=== PATIENT | female | born 1970 | race Caucasian/White ===

== ENCOUNTER 2025-01-26 09:25 | Inpatient (IN) | payer OTHER ==
[~2025-01-26] VITALS: Ht 162.6 cm; Wt 63.2 kg
[~2025-01-26 09:25] MED LIST: HYDACE5 PO; IBUP400 PO; IBUP600 PO; OXYACE5T PO; PRED20 PO; Percocet 5-3251 EACH PO
[2025-01-26 10:56] LABS: Bicarbonate Venous 26.2 mmol/L (24.0-30.0); PCO2 Venous 47.1 mmHg (38-42)
[2025-01-26 11:02] LABS: BASOPHILS ABSOLUTE AUTO 0.08 K/mm3 (0.00-0.23); BASOPHILS PERCENT AUTO 1 % (0-2); EOSINOPHILS ABSOLUTE AUTO 0.02 K/mm3 (0.00-0.68); EOSINOPHILS PERCENT AUTO 0 % (0-6); Hematocrit 41.8 % (33.0-51.0); Hemoglobin 14.7 g/dL (11.5-16.0); IMMATURE GRAN ABSOLUTE AUTO 0.53 K/mm3 (0.00-0.10); IMMATURE GRAN PERCENT AUTO 4 % (0-1); LYMPHOCYTES ABSOLUTE AUTO 1.22 K/mm3 (0.84-5.20); LYMPHOCYTES PERCENT AUTO 8 % (21-46); MONOCYTES ABSOLUTE AUTO 0.99 K/mm3 (0.16-1.47); MONOCYTES PERCENT AUTO 7 % (4-13); Mean Corpuscular HGB 33.1 pg (26.0-34.0); Mean Corpuscular HGB Conc 35.2 g/dL (31.5-36.5); Mean Corpuscular Volume 94 fL (80-100); Mean Platelet Volume 10.1 fL (9.1-12.4); NEUTROPHILS ABSOLUTE AUTO 12.21 K/mm3 (1.96-9.15); NEUTROPHILS PERCENT AUTO 81 % (41-73); Platelet Count 552 K/mm3 (150-400); RDW Coefficient Variation 13.1 % (11.7-14.2); RDW Standard Deviation 44.5 fL (35.1-46.3); Red Blood Cell Count 4.44 M/mm3 (3.80-5.20); White Blood Cell Count 15.05 K/mm3 (4.00-11.30)
[2025-01-26] MEDS ORDERED: ALBU90OI INH (12:00)
[2025-01-26] MEDS ORDERED: ALBUTEROL AER HFA (12:00)
[2025-01-26] MEDS ORDERED: Prednisone10 MG (12:01)
[2025-01-26] MEDS ORDERED: AMOX-CLAV 875-1 EAC5 (12:01)
[2025-01-26] MEDS ORDERED: PREDNISONE (12:01)
[2025-01-26] MEDS ORDERED: CefTRIAXone Sodium 1,000 MG in NS 100 ML IV ONE (13:35)
[2025-01-26] MEDS ORDERED: Azithromycin 500 MG in NS 250 ML IV ONE (13:40)
[2025-01-26 14:55] LABS: Albumin, Blood 3.7 g/dL (3.4-5.0); Albumin/Globulin Ratio 0.8 (0.8-1.8); Bilirubin, Total 0.3 mg/dL (0.1-1.0); Bun/Creatinine Ratio 20.7 (12.0-20.0); Calcium, Blood 9.3 mg/dL (8.5-10.1); Creatinine, Blood 0.63 mg/dL (0.40-1.00); Globulin, Blood 4.4 g/dL (2.2-4.0); Potassium, Blood 3.7 mmol/L (3.5-5.5); Total Protein, Blood 8.1 g/dL (6.4-8.2)
[2025-01-26 15:44] VITALS: BP 149/95
[2025-01-26] MEDS ORDERED: Albuterol 2.5 MG/3 ML VIAL INH PRN (17:30)
[2025-01-26] MEDS ORDERED: Ipratropium/Albuterol SulF 2.5-0.5MG/3 ML Amp INH SCH (17:30)
[2025-01-26] MEDS ORDERED: MethylPREDNISolone Sod Succ 125 MG Vial IV SCH (18:00)
--- NOTE | 2025-01-26 18:12 | NUR ---
END OF SHIFT PT ARRIVED TO ROOM 309 AROUND 1545, PT ABLE TO TRANSFER SELF TO BED. SHE DOESNT USE AND DME AT BASELINE PT ON 3 LITERS OF O2, NONE AT BASELINE. LUNG SOUNDS CLEAR, 02 SATS ABOVE 90% BUT FEELS VERY SHORT OF BREATH. PT GOT UP TO USE THE BATHROOM, O2 DECREASED TO 88% AND CONTINUED TO HAVE A DIFFICULTY TIME RECOVERING. O2 INCREASED TO 5 LITERS. NOTIFIED AND RESP TREATMENTS ORDERED. PT DOESNT HAVE ANY SKIN ISSUES. PIV PATENT. PT HAS CALL LIGHT WITHIN REACH AND USES APPROPRIATLY
[2025-01-26 20:00] VITALS: BP 142/90
[2025-01-26] MEDS ORDERED: Lactobacil 2-S.Thermo-Bifido 1 1 Cap PO SCH (21:00)
[2025-01-27 03:53] VITALS: BP 124/85
--- NOTE | 2025-01-27 05:05 | NUR ---
SHIFT SUMMARY PT ALERT ORIENTED X 4 GETS UP AND AMBULATES TO THE BATHROOM WITH SBA AND WALKER. SHE GETS VERY SOB AND REQUIRES TO BE SITTING STRAIGHT UP IN THE BED OR IN THE CHAIR. REMAINS ON ROCEPHIN QDAY AND ZITHROMAX QDAY FOR BRONCHOPNEUMONIA. SHE REMAINS ON 5L VIA NC AND IS SATTING AT 93%. REMAINS ON A CONTINUOUS PULSE OX. SHE GETS VERY SOB ON EXERTION. LUNG SOUNDS ARE CLEAR BUT SHE HAS A VERY HARD TIME CATCHING HER BREATH WHEN SHES MOVING AROUND.RESTING SITTING UP IN THE BED AT THIS TIME WITH CALL LIGHT IN REACH
[2025-01-27 05:10] LABS: BASOPHILS ABSOLUTE AUTO 0.04 K/mm3 (0.00-0.23); BASOPHILS PERCENT AUTO 0 % (0-2); EOSINOPHILS PERCENT AUTO 0 % (0-6); Hematocrit 36.6 % (33.0-51.0); Hemoglobin 12.8 g/dL (11.5-16.0); IMMATURE GRAN PERCENT AUTO 3 % (0-1); LYMPHOCYTES ABSOLUTE AUTO 0.74 K/mm3 (0.84-5.20); LYMPHOCYTES PERCENT AUTO 6 % (21-46); MONOCYTES ABSOLUTE AUTO 0.16 K/mm3 (0.16-1.47); MONOCYTES PERCENT AUTO 1 % (4-13); Mean Corpuscular HGB 33.2 pg (26.0-34.0); Mean Corpuscular Volume 95 fL (80-100); Mean Platelet Volume 10.1 fL (9.1-12.4); NEUTROPHILS ABSOLUTE AUTO 10.62 K/mm3 (1.96-9.15); NEUTROPHILS PERCENT AUTO 90 % (41-73); Platelet Count 459 K/mm3 (150-400); RDW Coefficient Variation 13.1 % (11.7-14.2); RDW Standard Deviation 44.3 fL (35.1-46.3); Red Blood Cell Count 3.86 M/mm3 (3.80-5.20); White Blood Cell Count 11.86 K/mm3 (4.00-11.30)
[2025-01-27 05:30] LABS: Albumin, Blood 2.8 g/dL (3.4-5.0); Albumin/Globulin Ratio 0.6 (0.8-1.8); Bilirubin, Total 0.3 mg/dL (0.1-1.0); Bun/Creatinine Ratio 28.1 (12.0-20.0); Calcium, Blood 9.2 mg/dL (8.5-10.1); Creatinine, Blood 0.53 mg/dL (0.40-1.00); Globulin, Blood 4.4 g/dL (2.2-4.0); Potassium, Blood 4.1 mmol/L (3.5-5.5); Total Protein, Blood 7.2 g/dL (6.4-8.2)
[2025-01-27 07:26] VITALS: BP 134/84
[2025-01-27] MEDS ORDERED: NS 100 ML IV ONE (08:55)
[2025-01-27] MEDS ORDERED: Azithromycin 500 MG in NS 250 ML IV SCH (09:00)
[2025-01-27] MEDS ORDERED: CefTRIAXone Sodium 1,000 MG in NS 100 ML IV SCH (09:00)
[2025-01-27] MEDS ORDERED: Enoxaparin 40 MG/0.4 ML SYR SC SCH (09:00)
[2025-01-27] MEDS ORDERED: NS 500 ML IV ONE (09:13)
[2025-01-27] MEDS ORDERED: NS 500 ML IV PRN (09:35)
[2025-01-27] MEDS ORDERED: Insulin Human Lispro 100 Units/ML 3ML Syringe SC SCH (11:30)
--- NOTE | 2025-01-27 14:33 | NUR ---
SHIFT NOTE PT ALERT, ORIENTED, ABLE TO MAKE NEEDS KNOWN. PT ON 4 LITERS OF 02, SATS AT 89 AND ABOVE. PT AWARE OF NEED TO TAKE DEEP BREATHS WHEN O2 MONITOR IS ALARMING. PT UP WITH ONE ASSIST OR INDEPENDENTLY TO THE BATHROOM WHEN NEEDED. PT APPEARS TO HAVE IMPROVED SINCE ADMISSION. TODAY, AT LUNCH WHEN HER TRAY WAS BROUGHT IN AND THE LID WAS OPENEND, THE SMELL OF THE FISH SENT THE PT INTO A SEVERE PANIC ATTACK. HER HEART RATE WAS 149, SHE WAS TAKING VERY SHALLOW BREATHS AND WAS INITIALLY HARD TO GET HER TO FOLLOW INSTRUCTIONS. PT DID BEGIN TO SLOW HER BREATHING DOWN. SHE SAID THIS HAPPENS ANYTIME SHE IS AROUND ANY TYPE OF SEAFOOD. MD WAS MADE AWARE OF THE INCIDENT. PT CONTINUES TO NEED O2, HAS A COUGH WITH YELLOW THICK SPUTUM. PT EDUCATED ON BLOOD SUGARS AND INSULIN. WILL CONTINUE TO EDUCATE ON MONITOR RESP STATUS.
[2025-01-27 15:32] VITALS: BP 124/80
[2025-01-27 19:50] VITALS: BP 134/86
[2025-01-28] VITALS (10 sets, daily range): BP systolic 120–143; BP diastolic 76–94
[2025-01-28 06:10] LABS: BASOPHILS ABSOLUTE AUTO 0.02 K/mm3 (0.00-0.23); BASOPHILS PERCENT AUTO 0 % (0-2); EOSINOPHILS PERCENT AUTO 0 % (0-6); Hematocrit 36.3 % (33.0-51.0); Hemoglobin 12.6 g/dL (11.5-16.0); IMMATURE GRAN ABSOLUTE AUTO 0.66 K/mm3 (0.00-0.10); IMMATURE GRAN PERCENT AUTO 4 % (0-1); LYMPHOCYTES ABSOLUTE AUTO 1.13 K/mm3 (0.84-5.20); LYMPHOCYTES PERCENT AUTO 6 % (21-46); MONOCYTES ABSOLUTE AUTO 0.63 K/mm3 (0.16-1.47); MONOCYTES PERCENT AUTO 4 % (4-13); Mean Corpuscular HGB 33.2 pg (26.0-34.0); Mean Corpuscular HGB Conc 34.7 g/dL (31.5-36.5); Mean Corpuscular Volume 96 fL (80-100); Mean Platelet Volume 10.2 fL (9.1-12.4); NEUTROPHILS ABSOLUTE AUTO 15.34 K/mm3 (1.96-9.15); NEUTROPHILS PERCENT AUTO 86 % (41-73); Platelet Count 465 K/mm3 (150-400); RDW Coefficient Variation 13.1 % (11.7-14.2); Red Blood Cell Count 3.79 M/mm3 (3.80-5.20); White Blood Cell Count 17.78 K/mm3 (4.00-11.30)
--- NOTE | 2025-01-28 06:24 | NUR ---
SHIFT SUMMARY PT ALERT ORIENTED X 4 ABLE TO VERBALIZE NEEDS AMBULATES IN ROOM AND TO THE BATHROOM. SHE CONTINUES TO HAVE A PRODUCTIVE COUGH AND CONGESTION. SHE GETS VERY SOB WITH EXERTION. CONTINUES ON O2 AT 4L SATTING AT 91%. REMAINS ON A CONTINUOUS PULSE OX. CONTINUES ON ROCEPHIN AND ZITHROMAX ORDERED FOR BRONCHOPNEUMONIA. FS DONE AC AND HS WAS 176. RESTING IN BED AT THIS TIME WITH CALL LIGHT IN REACH
[2025-01-28 06:49] LABS: Bun/Creatinine Ratio 38.1 (12.0-20.0); Creatinine, Blood 0.63 mg/dL (0.40-1.00); Potassium, Blood 4.4 mmol/L (3.5-5.5)
[2025-01-28] MEDS ORDERED: Guaifenesin/Dextromethorphan Syrup 5 ML UDC PO PRN (09:55)
[2025-01-28] MEDS ORDERED: Benzonatate 100 MG Cap PO SCH (10:00)
[2025-01-28] MEDS ORDERED: Nicotine 14 MG PATCH TOP SCH (11:00)
--- NOTE | 2025-01-28 17:09 | NUR ---
01/28 0930 RESP DISTRESS EPISODE PT HAD BEEN BREATHING COMFORTABLE, HAD A COUGH SPELL THAT SENT HER INTO SEVERE DYSPNIC EPISODE, RR >30, SHALLOW "PANTING", APPEARED DIAPHORETIC, AND IS FADING, APPEARED TO BE LOSING CONSCIOUSNESS. RN STAYED TO HOLD PT UPRIGHT SITTING, COACHED IN NASAL BRETING AND SLOWING DOWN. HEART RATE NOTED TO BE 146 AT THE HIGHTST AND SATS LOWEST 92% /3L/NC, ENCREASED OXYGEN TO 10L, IMMEDIATEDLY SATS BEGAN TO COME UP AND HR DOWN. RN CALLED MEDICAL MANAGEMENT TRAINER, WELL PULLER WHO SENT LOLA, AND R.T. ALL CALLED. WITHIN 5 MINUTES SATS BACK UP TO 92%, HR 110 AND PT IS MORE ALERT, RR COMING DOWN, SLOWED BREATHING AND NASAL BREATHING. NOTIFIED DR MEJIA OF INCIDENT. SENT SPUTUM. STARTED PT ON TELE. PT RECOVERED FULLY AND RESTING WITH OXYGEN 6L/NC, SATS 92%, HR 110.
--- NOTE | 2025-01-28 19:23 | NUR ---
SUMMARY- PT A/O X4, SBA AMBULATES TO BATHROOM. HERE RECOVERING FROM BRONCHOPNEUMONIA. LUNGS SOUND CLEAR X CRACKLES HEARD R BASE. MOD DYSPNEA WITH EXERTIONAL ACTIVITY, TURN OXYGEN UP A FEW LITERS WITH ACTIVITY AND BACK DOWN. STARTED OFF WITH O2 AT 2L/NC, SATS 85%- INCREASED TO 3L- SATS 92%. PT HAD DYSPNIC EPISODE AT 09, JANUARY READ NOTE- SATS DROPPED HR ELEVATED INTO 140'S, PT WAS CLAMMY AND LOSING CONSCIOUSNESS UNTIL O2 CRANKED UP AND PT TALKED DOWN TO SLOW BREATHING... PT SINCE RECOVERED AND USED THE BSC FOR A FEW HOURS AND INSISTED TO AMBULATE TO BATHROOM, HAS NOT HAD ANY MORE COUGHING EPPISODES. STARTED ON SCHEDULED COUGH PEARLS AND PRN ROBIDUSSIN DM WHICH SEEMS EFFECTIVE PT COUGHING MUCH LESS, STATES RELEIF OF COUGH.
[2025-01-28] MEDS ORDERED: GuaiFENesin 600 MG TabCR PO SCH (21:00)
[2025-01-29 03:50] VITALS: BP 126/79
[2025-01-29 05:01] LABS: Hematocrit 35.2 % (33.0-51.0); Hemoglobin 11.8 g/dL (11.5-16.0); Mean Corpuscular HGB 32.1 pg (26.0-34.0); Mean Corpuscular HGB Conc 33.5 g/dL (31.5-36.5); Mean Corpuscular Volume 96 fL (80-100); Platelet Count 463 K/mm3 (150-400); RDW Coefficient Variation 13.2 % (11.7-14.2); RDW Standard Deviation 45.8 fL (35.1-46.3); Red Blood Cell Count 3.68 M/mm3 (3.80-5.20)
[2025-01-29 07:24] VITALS: BP 135/78
--- NOTE | 2025-01-29 08:05 | NUR ---
SHIFT SUMMARY PT HAS BEEN RESTING COMFORTABLY IN BED OVERNIGHT. PT HAS BEEN AOX4, CALM AND COOPERATIVE. SHE HAS BEEN ON 4LNC OVERNIGHT, SATURATING IN 90-95%. PT HAS BEEN 1PA TO BATHROOM. PT HAS HAD NO COMPLAINTS OVERNIGHT, AND NO ACUTE EVENTS OVERNIGHT.
[2025-01-29 12:20] VITALS: BP 134/85
[2025-01-29] MEDS ORDERED: MethylPREDNISolone Sod Succ 125 MG Vial IV SCH (16:00)
[2025-01-29 16:14] VITALS: BP 143/78
[2025-01-29 19:54] VITALS: BP 122/78
--- NOTE | 2025-01-29 20:21 | NUR ---
SUMMARY- PT'S RESP IMPROVED, COUGHING LESS AND O2 DEMAND IMPROVED. STARTED ON 4L THIS AM AND ABLE TO DECREASE TO 2.5L, MAINTAINING SATS ABOVE 90%. AMBULATING TO THE BATHROOM INDEPENDANT NOW, VERY STEADY AND GAINING STRENGTH. IN GOOD SPIRITS AND FRIENDS SAY SHE IS BACK TO HER JOVIAL SELF. TOLERATING FOOD AND FLUIDS AND CONT B/B. REPORTED TO NOC RN
[2025-01-30 03:11] VITALS: BP 126/68
[2025-01-30 05:08] LABS: Mean Corpuscular HGB 31.3 pg (26.0-34.0); Mean Corpuscular HGB Conc 33.3 g/dL (31.5-36.5); Mean Corpuscular Volume 94 fL (80-100); Platelet Count 457 K/mm3 (150-400); RDW Coefficient Variation 13.2 % (11.7-14.2); RDW Standard Deviation 45.2 fL (35.1-46.3); Red Blood Cell Count 3.83 M/mm3 (3.80-5.20); White Blood Cell Count 10.53 K/mm3 (4.00-11.30)
[2025-01-30 05:38] LABS: Bun/Creatinine Ratio 37.6 (12.0-20.0); Calcium, Blood 8.8 mg/dL (8.5-10.1); Creatinine, Blood 0.56 mg/dL (0.40-1.00); Potassium, Blood 4.2 mmol/L (3.5-5.5)
--- NOTE | 2025-01-30 06:05 | NUR ---
SHIFT SUMMARY PT HAS BEEN RESTING COMFORTABLY IN BED OVERNIGHT. PT HAS REMAINED AOX4. SHE HAS BEEN ON 2LNC, SATURATING 92-95%. SHE HAS HAD A COUPLE OF COUGHING FITS OVERNIGHT, WHICH HAVE OCCURRED AFTER USING THE BATHROOM. PT HAS DYSPNEA UPON EXERTION. PT ON TELEMETRY. SHE HAS BEEN INDEPENDENT TO BATHROOM. PT HAD NO COMPLAINTS OVERNIGHT. NO ACUTE EVENTS OVERNIGHT.
[2025-01-30 07:44] VITALS: BP 124/88
[2025-01-30] MEDS ORDERED: Cefuroxime Axetil 250 MG Tab PO ONE (11:30)
[2025-01-30] MEDS ORDERED: Azithromycin 250 MG Tab PO ONE (11:30)
[2025-01-30] MEDS ORDERED: Tessalon200 MG PO (12:54)
[2025-01-30] MEDS ORDERED: ROBITUSSIN DM PO (12:55)
[2025-01-30] MEDS ORDERED: GUAI600T33 PO (12:55)
[2025-01-30] MEDS ORDERED: VISBIOME 112.51 EACH PO (12:56)
[2025-01-30] MEDS ORDERED: ALBU2.5V5 INH (12:57)
[2025-01-30] MEDS ORDERED: AZIT500 PO (12:58)
[2025-01-30] MEDS ORDERED: TRELEGY ELLIPT1 EACH INH (12:59)
[2025-01-30] MEDS ORDERED: CEFU500T30 PO (12:59)
[2025-01-30] MEDS ORDERED: IPRAT-ALBUT 0.5-3 ML INH (13:00)
--- NOTE | 2025-01-30 15:54 | NUR ---
PT DISCHARGED WITH DC INSTRUCTIONS. PORTABLE OXYGEN TANK DELIVERED TO THE ROOM. WHEELCHAIR ESCORT OUT TO PRIVATE CAR FOR DC. SENT HOME WITH BELONGINGS
== END 2025-01-30 15:59 | disposition home or self-care (01) | DRG 871 ==
LOC: ER 09:25 → MEDS 09:26
PROVIDERS: Internal Medicine; Student in an Organized Health Care Education/Training Program; ADMIT Family Medicine
DX: A41.9 Sepsis, unspecified organism (principal); J18.9 Pneumonia, unspecified organism; J96.01 Acute respiratory failure with hypoxia; J44.1 Chronic obstructive pulmonary disease with (acute) exacerbation; J44.0 Chronic obstructive pulmonary disease with (acute) lower respiratory infection; Z96.661 Presence of right artificial ankle joint; F17.210 Nicotine dependence, cigarettes, uncomplicated; R73.9 Hyperglycemia, unspecified; I48.91 Unspecified atrial fibrillation; R73.03 Prediabetes; H93.8X2 Other specified disorders of left ear; F12.90 Cannabis use, unspecified, uncomplicated; Z79.51 Long term (current) use of inhaled steroids; Z88.5 Allergy status to narcotic agent; Z79.891 Long term (current) use of opiate analgesic; Z98.1 Arthrodesis status; Z79.52 Long term (current) use of systemic steroids; Z79.899 Other long term (current) drug therapy
CPT/HCPCS: 36415; 71045; 71260; 80048; 80053; 82803; 82947; 83036; 83605; 83880; 84145; 84484; 85025; 85027; 85379; 87040; 93005; 93010; 94640; 94664; 94760; 94761; 94762; 96365-59; 96372; 96375; 96375-59; 96376; 99285-25; A9270; G0378; J0456; J0696; J1650; J2919; J7040; J7050; Q9967